=== PATIENT | male | born 1995 | race Caucasian/White ===

== ENCOUNTER 2017-05-25 00:51 | Emergency (ER) | payer SELFPAY ==
[~2017-05-25] VITALS: Ht 175.3 cm; Wt 64.0 kg
[2017-05-25 00:57] VITALS: BP 116/68
== END 2017-05-25 05:30 | disposition left against medical advice (07) ==
LOC: ER 00:51
DX: Z53.21 Procedure and treatment not carried out due to patient leaving prior to being seen by health care provider (principal)